=== PATIENT | female | born 1990 | race Caucasian/White ===

== ENCOUNTER 2021-03-01 19:37 | Emergency (ER) | payer OTHER ==
[~2021-03-01] VITALS: Ht 175.3 cm; Wt 68.0 kg
--- NOTE | 2021-03-01 19:37 | NUR ---
30 y/o female presents to ED for fall sustained while rollerskating. Patient fell and used her Left Wrist to brace her fall - Left Wrist pain is her Chief Complaint. No other issues at this time.
[2021-03-01] MEDS ORDERED: IBUPROFEN 800 MG TABLET PO ONE (20:00)
[2021-03-01] MEDS ORDERED: IBUPROFEN 800 MG TABLET ONE (20:03)
[2021-03-01] MEDS ORDERED: HYDR-4209 PO (20:37)
[2021-03-01] MEDS ORDERED: IBUP-1955 PO (20:37)
[2021-03-01] MEDS ORDERED: DOCU-141 PO (20:37)
[2021-03-01 20:53] VITALS: BP 116/86
--- NOTE | 2021-03-01 20:53 | NUR ---
Patient discharged to home in stable condition. Written and verbal after care instructions given. Patient verbalizes understanding of instructions. Stressed follow up or return to ER for worsening s/s. Belongings with patient. Neurological check clear. Steady gait.
== END 2021-03-01 20:55 | disposition home or self-care (01) ==
LOC: ER 19:39
DX: S52.502A Unspecified fracture of the lower end of left radius, initial encounter for closed fracture (principal); W18.39XA Other fall on same level, initial encounter; Y93.51 Activity, roller skating (inline) and skateboarding; Y92.89 Other specified places as the place of occurrence of the external cause; Y99.8 Other external cause status
CPT/HCPCS: 73110; A4663